=== PATIENT | female | born 1940 | race Caucasian/White ===

== ENCOUNTER 2018-03-14 10:23 | Outpatient (CLI) | payer OTHER | END 2018-03-14 10:31 | disposition home or self-care (01) | LOC: RAD 10:23 | DX: R05 Cough (principal) ==

== ENCOUNTER 2018-12-18 13:45 | Outpatient (CLI) | payer OTHER | END 2018-12-18 14:21 | disposition home or self-care (01) | LOC: MAMO-SONO 13:45 | DX: Z12.31 Encounter for screening mammogram for malignant neoplasm of breast (principal); Z87.898 Personal history of other specified conditions; N64.4 Mastodynia; N63.10 Unspecified lump in the right breast, unspecified quadrant; N63.20 Unspecified lump in the left breast, unspecified quadrant ==

== ENCOUNTER 2020-01-24 09:12 | Outpatient (CLI) | payer OTHER | END 2020-01-24 09:18 | disposition home or self-care (01) | LOC: SONOGRAMA 09:12 | PROVIDERS: ATTEND Pathology Anatomic Pathology & Clinical Pathology | DX: C73 Malignant neoplasm of thyroid gland (principal) ==